=== PATIENT | female | born 1940 | race Caucasian/White ===

== ENCOUNTER 2018-04-23 16:48 | Observation (INO) ==
[2018-04-23] MEDS ORDERED: 0.9 % Sodium Chloride 1,000 ML IVC ONE (16:54)
--- NOTE | 2018-04-23 16:57 | Emergency Department Note ---
Disposition Clinical Impression: Expressive aphasia Disposition: Admitted As Inpatient Condition: Fair Forms: ED Satisfaction Letter Time of Disposition: 18:19 Neuro HPI - General Stated Complaint: Neuro symptoms Time Seen by Provider: 04/23/18 16:51 Source: patient Mode of arrival: wheelchair Limitations: no limitations Nursing Notes Reviewed: Yes Vital Signs Reviewed: Yes - History of Present Illness HPI Narrative: 78-year-old female with past mental history of hypertension, diabetes and hyperlipidemia presenting to the ED with a 24-hour history of intermittent expressive aphasia. No previous history of CVA. No anticoagulation or antiplatelet use. States that she was visiting her in a custodial who is in rehabilitation after her recent knee replacement and noted that she knew what she wanted to say but could not get the words out. States his symptoms have pretty much gone away. She had another episode earlier in the morning. She had no associated numbness, weakness or obvious facial droop. No falls. She denies any fever, headache, changes in vision, neck pain, chest pain, shortness of breath, abdominal pain, nausea, vomiting, diarrhea, rash or diaphoresis. - Related Data Allergies/Adverse Reactions: Allergies Allergy/AdvReac Type Severity Reaction Status Date / Time acetaminophen [From Vicodin] AdvReac Vomiting Verified 08/27/15 07:41 aspirin AdvReac Vomiting Verified 08/27/15 07:40 azithromycin AdvReac Rash Verified 08/27/15 07:40 Erythromycin Base AdvReac Rash Verified 08/27/15 07:40 hydrochlorothiazide AdvReac Rash Verified 08/27/15 07:40 hydrocodone [From Vicodin] AdvReac Vomiting Verified 08/27/15 07:41 naproxen AdvReac Diarrhea Verified 08/27/15 07:40 Oxycodone [From Percocet] AdvReac Vomiting Verified 08/27/15 07:41 Penicillins AdvReac Vomiting Verified 08/27/15 07:40 Sulfa (Sulfonamide AdvReac Vomiting Verified 08/27/15 07:40 Antibiotics) tramadol AdvReac Vomiting Verified 08/27/15 07:40 Review of Systems: As reviewed in the HPI. All other systems reviewed are negative or normal. Past Medical History - Past Medical History Attestation: Yes The following information was validated with the patient. Source: patient Medical history: Reports: arthritis, diabetes, GERD, hyperlipidemia, hypertension Surgical history: Reports: appendectomy, cholecystectomy, hysterectomy, other Psychiatric history: Reports: no psych history - Social History Smoking Status: Former smoker Alcohol use: Reports: none Drug use: Reports: none Physical Exam CONSTITUTIONAL: [well appearing, alert and in no acute distress] EYES: [EOMI, clear conjunctiva, PERRLA] HENT: [Normocephalic, atraumatic, moist mucus membranes, normal oropharynx] NECK: [normal inspection, full ROM, trachea midline, no obvious swelling] PULMONARY: [normal lung sounds bilaterally, normal chest rise and fall, no respiratory distress or stridor, no wheezes, no rales, no rhonchi CARDIOVASCULAR: [regular rate, regular rhythm, normal heart sounds, no murmurs, distal extremities are warm and well perfused] GASTROINSTESTINAL: [soft, non-tender, non-rigid, non-distended, no guarding, no rebound, normal bowel sounds] GENITOURINARY/RECTAL: [deferred] NEUROLOGIC: [Alert, oriented x3, normal speech, moves all extremities, cranial nerves II through XII intact, no expressive aphasia, strength and sensation normal throughout] EXTREMITIES: [Normal inspection, full ROM, no tenderness, no pedal edema, normal capillary refill] MUSCULOSKELETAL: [no gross deformities, atraumatic] SKIN: [No cyanosis, no diaphoresis, normal color, warm, no rash] PSYCHIATRIC: [normal mood and affect] Course - Reevaluation(s) Reevaluation #1: Work up is negative. Allowing permissive hypertension. Patient admitted the hospitalist service under Dr. Morelos Vital Signs Temperature 97.8 F 04/23/18 16:52 Pulse Rate 107 04/23/18 16:52 Respiratory Rate 18 04/23/18 16:52 Blood Pressure 170/82 04/23/18 16:52 O2 Sat by Pulse Oximetry 97 04/23/18 16:52 Temperature 97.8 F 04/23/18 16:52 Pulse Rate 107 04/23/18 16:52 Respiratory Rate 18 04/23/18 16:52 Blood Pressure 170/82 04/23/18 16:52 O2 Sat by Pulse Oximetry 97 04/23/18 16:52 Oxygen Delivery Oxygen Delivery Room Air Neuro Symptoms/Deficit - Medical Records Medical records reviewed: Yes I reviewed the patient's medical records. - Lab Data Lab results reviewed: Yes I reviewed the patient's lab results. Result diagrams: 04/23/18 17:00 04/23/18 17:00 Lab Results 04/23/18 04/23/18 04/23/18 Range/Units 17:00 17:00 17:26 WBC 10.1 (4.3-11.1) K/mcL RBC 4.76 (3.82-4.97) M/mcL Hgb 13.9 (11.5-15.4) g/dL Hct 42.3 (35.3-44.9) % MCV 88.9 (83.0-100.0) fL MCH 29.2 (28.0-33.3) pg MCHC 32.9 (31.6-35.5) g/dL RDW 12.1 (11.5-14.5) % Plt Count 281 (140-400) K/mcL MPV 10.6 (9.4-12.4) fL Immature Gran % 0.2 (0-4) % Seg Neutrophils % 61.0 % Lymphocytes % 26.2 % Monocytes % 9.6 % Eosinophils % 2.1 % Basophils % 0.9 % Neutrophils # 6.2 (1.6-8.9) K/mcL Lymphocytes # 2.6 (0.6-4.6) K/mcL Monocytes # 1.0 (0.0-1.3) K/mcL Eosinophils # 0.2 (0.0-0.6) K/mcL Basophils # 0.1 (0.0-0.2) K/mcL Sodium 140 (136-145) mEq/L Potassium 3.7 (3.5-5.1) mEq/L Chloride 104 (98-107) mEq/L Carbon Dioxide 25 (23-29) mEq/L BUN 21 (8-23) mg/dL Creatinine 1.03 (0.60-1.20) mg/dL Est GFR ( Amer) > 60 (> 60) Est GFR (Non-Af Amer) 52 L (> 60) BUN/Creatinine Ratio 20 (6-26) Glucose 160 H (70-105) mg/dL Calculated Osmolality 296 (280-300) Lactic Acid (0.5-2.2) mmol/L Calcium 10.5 H (8.6-10.3) mg/dL Venous Ioniz Calcium 1.28 (1.15-1.35) mmol/L Total Bilirubin 0.5 (0.3-1.0) mg/dL AST 17 (13-39) Units/L ALT 12 (7-52) Units/L Alkaline Phosphatase 36 (34-104) Units/L Troponin I < 0.03 (< 0.04) ng/mL Serum Total Protein 7.6 (6.4-8.9) g/dL Albumin 4.7 (3.5-5.7) g/dL Globulin 2.9 (2.4-3.5) g/dL Albumin/Globulin Ratio 1.6 (1.1-2.2) TSH 1.593 (0.340-5.600) mcIU/mL // Range/Units 17:36 WBC (4.3-11.1) K/mcL RBC (3.82-4.97) M/mcL Hgb (11.5-15.4) g/dL Hct (35.3-44.9) % MCV (83.0-100.0) fL MCH (28.0-33.3) pg MCHC (31.6-35.5) g/dL RDW (11.5-14.5) % Plt Count (140-400) K/mcL MPV (9.4-12.4) fL Immature Gran % (0-4) % Seg Neutrophils % % Lymphocytes % % Monocytes % % Eosinophils % % Basophils % % Neutrophils # (1.6-8.9) K/mcL Lymphocytes # (0.6-4.6) K/mcL Monocytes # (0.0-1.3) K/mcL Eosinophils # (0.0-0.6) K/mcL Basophils # (0.0-0.2) K/mcL Sodium (136-145) mEq/L Potassium (3.5-5.1) mEq/L Chloride (98-107) mEq/L Carbon Dioxide (23-29) mEq/L BUN (8-23) mg/dL Creatinine (0.60-1.20) mg/dL Est GFR ( Amer) (> 60) Est GFR (Non-Af Amer) (> 60) BUN/Creatinine Ratio (6-26) Glucose (70-105) mg/dL Calculated Osmolality (280-300) Lactic Acid 2.9 H (0.5-2.2) mmol/L Calcium (8.6-10.3) mg/dL Venous Ioniz Calcium (1.15-1.35) mmol/L Total Bilirubin (0.3-1.0) mg/dL AST (13-39) Units/L ALT (7-52) Units/L Alkaline Phosphatase (34-104) Units/L Troponin I (< 0.04) ng/mL Serum Total Protein (6.4-8.9) g/dL Albumin (3.5-5.7) g/dL Globulin (2.4-3.5) g/dL Albumin/Globulin Ratio (1.1-2.2) TSH (0.340-5.600) mcIU/mL - Radiology Data Radiology results reviewed: Yes I reviewed the patient's radiology results. - EKG Data EKG attestation: Yes I reviewed and interpreted this EKG. EKG results narrative: Sinus tach, rate 103, normal axis, no acute ischemic changes NIH Stroke Scale - Level of Consciousness LOC: Alert - LOC Questions LOC Questions: Answers both correctly - LOC Commands LOC Commands: Performs both correctly - Best Gaze Best Gaze: Normal - Visual Visual: No visual loss - Facial Palsy Facial Palsy: Normal - Motor Arms Motor Arm-Left: No drift for 10 seconds Motor Arm-Right: No drift for 10 seconds - Motor Legs Motor Leg-Left: No drift for 5 seconds Motor Leg-Right: No drift for 5 seconds - Limb Ataxia Limb Ataxia: Normal, No Ataxia - Sensory Sensory: Normal - Best Language Best Language: No aphasia - Dysarthria Dysarthria: Normal - Extinction and Inattention Extinction and Inattention: Normal - NIHSS Total Score NIHSS Total Score: 0 TPA Checklist - LKW: 3-4.5 hrs Add. Warnings/Precautions Patient/family understanding: The patient/family members have been counseled and understood the risk, benefit, and alternatives of treatment.
--- NOTE | 2018-04-23 17:13 | Emergency Department Note ---
Disposition Clinical Impression: Expressive aphasia Disposition: Admitted As Inpatient General Adult [facility] - General Chief complaint: ED Neuro Symptoms/Deficit Stated complaint: Neuro symptoms Time Seen by Provider: 04/23/18 16:51 Source: patient Mode of arrival: wheelchair Limitations: no limitations - History of Present Illness Pain Scale: 0 - Related Data Allergies Allergy/AdvReac Type Severity Reaction Status Date / Time acetaminophen [From Vicodin] AdvReac Vomiting Verified 08/27/15 07:41 aspirin AdvReac Vomiting Verified 08/27/15 07:40 azithromycin AdvReac Rash Verified 08/27/15 07:40 Erythromycin Base AdvReac Rash Verified 08/27/15 07:40 hydrochlorothiazide AdvReac Rash Verified 08/27/15 07:40 hydrocodone [From Vicodin] AdvReac Vomiting Verified 08/27/15 07:41 naproxen AdvReac Diarrhea Verified 08/27/15 07:40 Oxycodone [From Percocet] AdvReac Vomiting Verified 08/27/15 07:41 Penicillins AdvReac Vomiting Verified 08/27/15 07:40 Sulfa (Sulfonamide AdvReac Vomiting Verified 08/27/15 07:40 Antibiotics) tramadol AdvReac Vomiting Verified 08/27/15 07:40 Past Medical History - Past Medical History Medical history: Reports: arthritis, diabetes, GERD, hyperlipidemia, hypertension Surgical history: Reports: appendectomy, cholecystectomy, hysterectomy, other Psychiatric history: Reports: no psych history - Social History Smoking Status: Former smoker Alcohol use: Reports: none Drug use: Reports: none Physical Exam - General Limitations: no limitations General appearance: alert Course Vital Signs Temperature 97.8 F 04/23/18 16:52 Pulse Rate 107 04/23/18 16:52 Respiratory Rate 18 04/23/18 16:52 Blood Pressure 170/82 04/23/18 16:52 O2 Sat by Pulse Oximetry 97 04/23/18 16:52 Temperature 97.8 F 04/23/18 16:52 Pulse Rate 107 04/23/18 16:52 Respiratory Rate 18 04/23/18 16:52 Blood Pressure 170/82 04/23/18 16:52 O2 Sat by Pulse Oximetry 97 04/23/18 16:52 Oxygen Delivery Oxygen Delivery Room Air Attestation Statement - Attestation Attestation: I examined this patient and my medical decision-making was reviewed with the Resident Physician. I agree with the documented findings, disposition and treatment plan as described except to the extent set forth below. 78 yaer old female presents to the ED with complaints of expressive aphasia that started yesterday. Currently her NIH is 0. We will do a neuro defecits/TIA wokrup and than admit to medicine.
[2018-04-23 17:29] LABS: Basophils # 0.1 K/mcL (0.0-0.2); Basophils % 0.9 %; Eosinophils # 0.2 K/mcL (0.0-0.6); Eosinophils % 2.1 %; Hematocrit 42.3 % (35.3-44.9); Hemoglobin 13.9 g/dL (11.5-15.4); Immature Granulocytes % 0.2 % (0-4); Lymphocytes # 2.6 K/mcL (0.6-4.6); Lymphocytes % 26.2 %; Mean Corpuscular HGB Conc 32.9 g/dL (31.6-35.5); Mean Corpuscular Hemoglobin 29.2 pg (28.0-33.3); Mean Corpuscular Volume 88.9 fL (83.0-100.0); Mean Platelet Volume 10.6 fL (9.4-12.4); Monocytes % 9.6 %; Neutrophils # 6.2 K/mcL (1.6-8.9); Platelet Count 281 K/mcL (140-400); Red Blood Count 4.76 M/mcL (3.82-4.97); Red Cell Distribution Width 12.1 % (11.5-14.5)
[2018-04-23 17:29] LABS: VBG Ionized Calcium 1.28 mmol/L (1.15-1.35)
[2018-04-23 17:49] LABS: Alanine Aminotransferase 12 Units/L (7-52); Albumin 4.7 g/dL (3.5-5.7); Albumin/Globulin Ratio 1.6 (1.1-2.2); Alkaline Phosphatase 36 Units/L (34-104); Aspartate Amino Transferase 17 Units/L (13-39); BUN/Creatinine Ratio 20 (6-26); Bilirubin,Total 0.5 mg/dL (0.3-1.0); Blood Urea Nitrogen 21 mg/dL (8-23); Calcium 10.5 mg/dL (8.6-10.3); Carbon Dioxide 25 mEq/L (23-29); Chloride 104 mEq/L (98-107); Globulin 2.9 g/dL (2.4-3.5); Glucose 160 mg/dL (70-105); Osmolality,Calculated 296 (280-300); Potassium 3.7 mEq/L (3.5-5.1); Sodium 140 mEq/L (136-145); Total Protein 7.6 g/dL (6.4-8.9); eGFR For Non-African Americans 52 (> 60)
[2018-04-23 17:50] LABS: Troponin I < 0.03 ng/mL (< 0.04)
[2018-04-23 18:03] LABS: Thyroid Stimulating Hormone 1.593 mcIU/mL (0.340-5.600)
[2018-04-23] MEDS ORDERED: Ondansetron ODT 4 MG TAB.RAPDIS SL ONE (18:04)
[2018-04-23] MEDS ORDERED: Aspirin 81 MG TAB.CHEW PO ONE (18:04)
[2018-04-23 19:30] LABS: Bilirubin,Urine Negative (Negative); Blood,Urine Negative (Negative); Clarity,Urine Clear (Clear); Color,Urine Yellow (Yellow); Glucose,Urine (UA) Normal (Normal); Ketones,Urine Negative (Negative); Leukocyte Esterase,Urine Trace (Negative); Nitrite,Urine Negative (Negative); Protein,Urine Negative (Neg-Trace); Specific Gravity,Urine 1.008 (1.010-1.025); Urobilinogen,Urine Normal (Normal)
[2018-04-23 19:32] LABS: Bacteria,Urine None Seen per hpf (None-Few); Hyaline Casts,Urine None Seen per lpf (None-Few); RBC,Urine 0-3 per hpf (0-3); Squamous Epithelial Cell,Urine Few per lpf (None-Few); WBC,Urine 0-3 per hpf (0-3)
[2018-04-23] MEDS ORDERED: Dextrose Gel 15 GM/37.5 ML TUBE PO PRN ×2 (19:32)
[2018-04-23] MEDS ORDERED: Gadolinium Contrast Agent (WT Based) IV PRN (19:39)
[2018-04-23] MEDS ORDERED: Insulin LISPRO 300 UNITS/3 ML VIAL SQ SCH (21:00)
--- NOTE | 2018-04-23 21:47 | Internal Med History&Physical ---
Date of Encounter: 04/23/18 Time of Encounter: 21:45 Internal Medicine - H&P: HPI Chief complaint: difficulty speaking Plans for Post Hospital Care: Home History of present illness: Sanaz France is an 78-year-old woman with a history of hypertension, diabetes and hyperlipidemia who comes in with a complaint of difficulty speaking. She states that over the past 3 days she has had moments where she knows what she wants to say but the words would not come out of her mouth or sometimes she would start speaking gibberish and mixing up words. She had an episode that was witnessed by her daughter yesterday and another episode earlier this morning. She is conscious of when this is happening and given the increasing frequency decided to seek medical attention. She denied any focal deficits at the time. There is no previous history of CVA reported. There was no associated numbness, weakness or facial drooping. Her gait has remained stable. At this time the symptoms have resolved however she is anxious that it may recur he can. Her initial evaluation in the ER was unremarkable with normal lab values and CT scan. She remains hemodynamically stable. She is admitted for observation and further evaluation. She does admit to occasional episodes of vertigo which has been long-standing but has not experienced it of recent. Past Med Surg Social Fam HX - Past Medical History Medical history: arthritis, diabetes, GERD, hyperlipidemia, hypertension Additional medical history: rheumatic fever Psychiatric history: no psych history - Past Surgical History Surgical History: appendectomy, cholecystectomy, hysterectomy, other Additional surgical history: back surgery due to compression fracture - Social History Smoking Status: Former smoker Alcohol use: none Drug use: none - Family History Mother Living Status: Age at : 92 Hx Family Medical Disorders: Yes (HTN) Father Living Status: Cause of : Brain Aneurysm Hx Family Medical Disorders: Yes (HTN) Internal Medicine - H&P: Meds Allergy/AdvReac Type Severity Reaction Status Date / Time acetaminophen [From Vicodin] AdvReac Vomiting Verified 08/27/15 07:41 aspirin AdvReac Vomiting Verified 08/27/15 07:40 azithromycin AdvReac Rash Verified 08/27/15 07:40 Erythromycin Base AdvReac Rash Verified 08/27/15 07:40 hydrochlorothiazide AdvReac Rash Verified 08/27/15 07:40 hydrocodone [From Vicodin] AdvReac Vomiting Verified 08/27/15 07:41 naproxen AdvReac Diarrhea Verified 08/27/15 07:40 Oxycodone [From Percocet] AdvReac Vomiting Verified 08/27/15 07:41 Penicillins AdvReac Vomiting Verified 08/27/15 07:40 Sulfa (Sulfonamide AdvReac Vomiting Verified 08/27/15 07:40 Antibiotics) tramadol AdvReac Vomiting Verified 08/27/15 07:40 All Systems PM: A 10-system review of systems was performed and is negative for pertinent findings except as documented above in the HPI. Family history reviewed and found noncontributory. - Constitutional Vitals: Temp Pulse Resp BP Pulse Ox 98.3 F 90 14 157/84 93 04/23/18 20:40 04/23/18 20:40 04/23/18 20:40 04/23/18 20:40 04/23/18 21:31 Exam: Vitals: Reviewed General: Well-developed and well-appearing in no acute distress Skin: Warm and supple. HEENT: Moist mucous membranes. No conjunctivae pallor. Neck: No lymphadenopathy. No JVD. No carotid bruits. No palpable thyroid. Chest: Normal thoracic expansion. Normal breath sounds. Clear to auscultation. Heart: Normal S1 & S2; rhythmic. No rubs or murmurs. Abdomen: Non-distended, soft and non-tender to palpation. No peritoneal reaction. Liver is normal in size. Spleen is not palpable. Extremities: No clubbing, cyanosis or edema. No calf tenderness. Normal distal pulses. Neurological: Awake, alert and oriented to person, place and time. No focal deficits. 5/5 strength in all extremities. Sensation intact. Psych: Affect appropriate. Internal Med - H&P Results - Labs CBC & Chem 7: 04/23/18 17:00 04/23/18 17:00 Labs: Short CBC 04/23/18 Range/Units 17:00 WBC 10.1 (4.3-11.1) K/mcL Hgb 13.9 (11.5-15.4) g/dL Hct 42.3 (35.3-44.9) % Plt Count 281 (140-400) K/mcL Neutrophils # 6.2 (1.6-8.9) K/mcL BMP 12/17/18 17:00 Sodium 140 Potassium 3.7 Chloride 104 Carbon Dioxide 25 BUN 21 Creatinine 1.03 Glucose 160 H Calcium 10.5 H Cardiac Enzymes 04/23/18 Range/Units 17:00 Troponin I < 0.03 (< 0.04) ng/mL Liver Function 04/23/18 Range/Units 17:00 Total Bilirubin 0.5 (0.3-1.0) mg/dL AST 17 (13-39) Units/L ALT 12 (7-52) Units/L Alkaline Phosphatase 36 (34-104) Units/L Albumin 4.7 (3.5-5.7) g/dL Urine 04/23/18 Range/Units 19:00 Urine Color Yellow (Yellow) Urine Clarity Clear (Clear) Urine pH 7.0 (5.0-8.0) pH Units Ur Specific [place] 1.008 L (1.010-1.025) Urine Protein Negative (Neg-Trace) mg/dL Urine Glucose (UA) Normal (Normal) mg/dL - Impressions ITS Impressions Chest X-Ray 04/23/18 16:54 IMPRESSION: No acute cardiopulmonary disease. D/ / 04/23/2018 17:24:55 Andrea Fritz MD / rio Interpreting Provider: Andrea Fritz MD Head CT 04/23/18 16:55 IMPRESSION: No acute intracranial abnormality. Small vessel white matter ischemic changes. D/ / Imtiaz Gutierrez MD / Imtiaz Gutierrez MD Interpreting Provider: Imitaz Gutierrez MD - Assessment and plan (1) Expressive aphasia Current Visit: Yes Status: Acute Assessment and plan: The patient's recurring episodes of expressive aphasia are concerning for transient ischemic attacks. Based on her risk factors she has an ABCD2 score of 4 which is moderate risk. She was given loading dose of aspirin and we will continue with low-dose daily. Continue statin therapy. We will order brain MRI and head and neck MRA for further evaluation. She will benefit from neurology evaluation either during admission for scheduled outpatient visit. (2) HTN (hypertension) Current Visit: Yes Status: Acute Assessment and plan: Well controlled at this time. Will resume home medications once verified. Qualifiers: Hypertension type: essential hypertension Qualified Code(s): I10 - Essential (primary) hypertension (3) HLD (hyperlipidemia) Current Visit: Yes Status: Acute Assessment and plan: On daily simvastatin 10mg; lipid panel within normal limits. Qualifiers: Hyperlipidemia type: unspecified Qualified Code(s): E78.5 - Hyperlipidemia, unspecified (4) Diabetes Current Visit: Yes Status: Chronic Assessment and plan: On metformin at home. Will place on insulin sliding scale in the interim. 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 - Time Spent With Patient Total time spent is greater than 50% in coordination of care (as documented) at patient's floor/unit and/or counseling patient: Greater than 35 minutes
[2018-04-23] MEDS: Lisinopril 20 MG TABLET PO SCH (22:31)
[2018-04-23] MEDS: *HR* Heparin 5,000 UNIT/ML VIAL SQ SCH (22:31)
[2018-04-24] MEDS: *HR* Heparin 5,000 UNIT/ML VIAL SQ SCH ×2 (05:27→14:08)
[2018-04-24] MEDS: Insulin LISPRO 300 UNITS/3 ML VIAL SQ SCH ×3 (08:05→17:45)
[2018-04-24] MEDS: Lisinopril 20 MG TABLET PO SCH (08:06)
[2018-04-24] MEDS ORDERED: Aspirin 81 MG TAB.CHEW PO SCH (09:00)
--- NOTE | 2018-04-24 10:38 | Internal Med Progress Note ---
Hospitalist Progress Note - Encounter Date of Encounter: 04/24/18 Time of Encounter: 10:38 - Exam Vitals: Temp Pulse Resp BP Pulse Ox 98.0 F 86 18 120/56 93 04/24/18 07:48 04/24/18 07:48 04/24/18 07:48 04/24/18 07:48 04/24/18 07:48 - Assessment and Plan (1) Expressive aphasia Current Visit: Yes Status: Acute (2) HTN (hypertension) Current Visit: Yes Status: Acute (3) HLD (hyperlipidemia) Current Visit: Yes Status: Acute (4) Diabetes Current Visit: Yes Status: Chronic (5) DVT prophylaxis Current Visit: Yes Status: Acute - Time Spent with Patient Total time spent is greater than 50% in coordination of care (as documented) at patient's floor/unit and/or counseling patient: Internal Medicine: Result - Labs CBC & Chem 7: 04/23/18 17:00 04/23/18 17:00 Labs: Short CBC 04/23/18 Range/Units 17:00 WBC 10.1 (4.3-11.1) K/mcL Hgb 13.9 (11.5-15.4) g/dL Hct 42.3 (35.3-44.9) % Plt Count 281 (140-400) K/mcL Neutrophils # 6.2 (1.6-8.9) K/mcL BMP 04/23/18 17:00 Sodium 140 Potassium 3.7 Chloride 104 Carbon Dioxide 25 BUN 21 Creatinine 1.03 Glucose 160 H Calcium 10.5 H Cardiac Enzymes 04/23/18 Range/Units 17:00 Troponin I < 0.03 (< 0.04) ng/mL Liver Function 04/23/18 Range/Units 17:00 Total Bilirubin 0.5 (0.3-1.0) mg/dL AST 17 (13-39) Units/L ALT 12 (7-52) Units/L Alkaline Phosphatase 36 (34-104) Units/L Albumin 4.7 (3.5-5.7) g/dL Urine 04/23/18 Range/Units 19:00 Urine Color Yellow (Yellow) Urine Clarity Clear (Clear) Urine pH 7.0 (5.0-8.0) pH Units Ur Specific [place] 1.008 L (1.010-1.025) Urine Protein Negative (Neg-Trace) mg/dL Urine Glucose (UA) Normal (Normal) mg/dL - Impressions Impressions Chest X-Ray 04/23/18 16:54 IMPRESSION: No acute cardiopulmonary disease. D/ / 04/23/2018 17:24:55 Andrea Fritz MD / rio Interpreting Provider: Andrea Fritz MD Head CT 04/23/18 16:55 IMPRESSION: No acute intracranial abnormality. Small vessel white matter ischemic changes. D/ / Imtiaz Gutierrez MD / Imtiaz Gutierrez MD Interpreting Provider: Imtiaz Gutierrez MD Consult Discharge Plan - Plan Referrals: Kirsten Ramirez CNP [Primary Care Provider] - 05/03/18 9:00 am (2) HTN (hypertension) Qualifiers: Hypertension type: essential hypertension Qualified Code(s): I10 - Essential (primary) hypertension (3) HLD (hyperlipidemia) Qualifiers: Hyperlipidemia type: unspecified Qualified Code(s): E78.5 - Hyperlipidemia, unspecified (4) Diabetes Qualifiers: Diabetes mellitus type: type 2 Diabetes mellitus fpc insulin use: without fpc use Diabetes mellitus complication status: without complication Qualified Code(s): E11.9 - Type 2 diabetes mellitus without complications
[2018-04-24 16:27] VITALS: BP 159/85
--- NOTE | 2018-04-24 17:31 | Neurology - Consult Note ---
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 Unfortunately currently angioplasty procedure is not of superiority than conservative medical therapy therefore i alda beckham recommend her to start antiplatelet therapy in the form of Plavix 75mg daily. Continue statin therapy. Treat HTN. Patient speech function significantly improved. It is expected that her speech is to fully recover. Patient has no focal motor deficits at present time. Okay to discharge home from neurology perspective. Total time spend on this case is approximately 50 minutes, of which more than 50% of time were spent on coordination of care and counselling and the rest for direct face to face Qualifiers: CVA mechanism: occlusion Precerebral and cerebral artery: middle cerebral artery Laterality of affected vessel: left Qualified Code(s): I63.512 - Cerebral infarction due to unspecified occlusion or stenosis of left middle cerebral artery History of Present Illness Chief complaint: speech difficulty HPI: Ms. France is a 78 year old female with PMH significant for HTN, GERD, vertigo, lumbar DDD who developed acute onset of speech difficulty. This occurred few days ago when she was with her who is getting physical rehabilitation and all of a sudden she started experiencing difficulty with her words. She can still say things but it came out 'crazy'. She did not seek medical help immediately and she did later call her PCP who told her to go ER right away. She did yesterday. She has no focal weakness. Walking is normal. MRI of brain showed multiple small ischemic infarct all within the left MCA territory. MRA of brain and neck showed presence of likely severe stenosis or occlusion at the left MCA M1 segment with flow observed at the M2 and M3 segments. Patient states that she has had rheumatoid arthritis in the past and she was given steroid and three aspirin and the combination caused big problem to her stomach. She is not on any antiplatelet agents right now. Past Med Surg Social Fam HX - Past Medical History Medical history: arthritis, diabetes, GERD, hyperlipidemia, hypertension Additional medical history: rheumatic fever Psychiatric history: no psych history - Past Surgical History Surgical History: appendectomy, cholecystectomy, hysterectomy, other Additional surgical history: back surgery due to compression fracture - Social History Smoking Status: Former smoker Alcohol use: none Drug use: none - Family History Mother Living Status: Age at : 92 Hx Family Medical Disorders: Yes (HTN) Father Living Status: Cause of : Brain Aneurysm Hx Family Medical Disorders: Yes (HTN) Medications and Allergies Alendronate Sodium 70 mg PO FR 04/23/18 [History] Amlodipine Besylate 10 mg PO DAILY 04/23/18 [History] Calcium Carbonate [Calcium] 600 mg PO DAILY 04/23/18 [History] Cholecalciferol (Vitamin D3) [Vitamin D] 1,000 unit PO DAILY 04/23/18 [History] Cyanocobalamin (Vitamin B-12) [Vitamin B12] 1,000 mcg PO DAILY 04/23/18 [History] Lisinopril [Zestril] 40 mg PO DAILY 04/23/18 [History] Metformin HCl 1,000 mg PO BID 04/23/18 [History] Simvastatin [Zocor] 10 mg PO MOWEFR 04/23/18 [History] Allergy/AdvReac Type Severity Reaction Status Date / Time acetaminophen [From Vicodin] AdvReac Vomiting Verified 08/27/15 07:41 aspirin AdvReac Vomiting Verified 08/27/15 07:40 azithromycin AdvReac Rash Verified 08/27/15 07:40 Erythromycin Base AdvReac Rash Verified 08/27/15 07:40 hydrochlorothiazide AdvReac Rash Verified 08/27/15 07:40 hydrocodone [From Vicodin] AdvReac Vomiting Verified 08/27/15 07:41 naproxen AdvReac Diarrhea Verified 08/27/15 07:40 Oxycodone [From Percocet] AdvReac Vomiting Verified 08/27/15 07:41 Penicillins AdvReac Vomiting Verified 08/27/15 07:40 Sulfa (Sulfonamide AdvReac Vomiting Verified 08/27/15 07:40 Antibiotics) tramadol AdvReac Vomiting Verified 08/27/15 07:40 All Systems: The remainder of the systems were reviewed and are negative Physical Examination - Vital Signs Vital Signs: Initial Vital Signs Temp Pulse Resp BP Pulse Ox 97.8 F 107 18 170/82 97 04/23/18 16:52 04/23/18 16:52 04/23/18 16:52 04/23/18 16:52 04/23/18 16:52 - Constitutional General appearance: comfortable - Neurologic Sensorimotor examination: intact Detailed motor examination: full strength in all major muscle groups Motor examination - right side: 5/5: deltoids, biceps, triceps, wrist flexion, wrist extension, manager reading, hip flexors, tibialis Anterior, quadriceps, toe extension (EHL), plantarflexion Motor examination - left side: 5/5: deltoids, biceps, triceps, wrist flexion, wrist extension, hip flexors, manager reading, quadriceps, tibialis Anterior, toe extension (EHL), plantarflexion Detailed sensory examination: intact Posture: other (None) Reflex and gait examination: intact Reflexes: Biceps: 2+, Triceps: 2+, Brachioradialis: 2+, Patella: 2+, Achilles: 2+ Mental Status Examination: awake, alert, oriented to person, oriented to place, oriented to time, follows commands appropriately, answers questions appropriately, no agnosia, no aphasia, no aproxia Cranial nerve examination: PERRL, EOMI, visual june intact, corneal reflexes brisk symmetrically, sensory to face intact, mastication intact, no facial asymmetry is present, no dysarthria, hearing is intact symmetrically, soft palate elevates bilaterally upon phonation, gag reflex intact, flexes SCM and trapezius muscles symmetrically with full power, tongue protrudes midline, no atrophy or facial fasiculations present Cerebellar examination: no dysmetria, performs finger to nose and heel to ramirez symmetrically without ataxia, no gait ataxia, no truncal ataxia, no difficulty with rapid alternating movements Results - Laboratory Findings CBC and BMP: 04/23/18 17:00 04/23/18 17:00 Abnormal lab findings: Abnormal lab results Est GFR (Non-Af Amer) 52 (> 60) L 04/23/18 17:00 Glucose 160 mg/dL (70-105) H 18 17:00 POC Glucose 125 mg/dL (70-99) H 04/23/18 20:57 Calcium 10.5 mg/dL (8.6-10.3) H 04/23/18 17:00 Ur Specific [place] 1.008 (1.010-1.025) L 18 19:00 Ur Leukocyte Esterase Trace (Negative) H 04/23/18 19:00 Ur Culture Indicated? YES (NO) A 04/23/18 19:00 - Diagnostic Findings Additional findings: EXAMINATION: CT OF THE HEAD WITHOUT CONTRAST 04/23/2018 5:51 pm TECHNIQUE: CT of the head was performed without the administration of intravenous contrast. Dose modulation, iterative reconstruction, and/or weight based adjustment of the mA/kV was utilized to reduce the radiation dose to as low as reasonably achievable. COMPARISON: None. HISTORY: ORDERING SYSTEM PROVIDED HISTORY: Expressive aphasia 1 day history of symptoms. FINDINGS: BRAIN/VENTRICLES: There is no acute intracranial hemorrhage, mass effect or midline shift. No abnormal extra-axial fluid collection. The henderson-white differentiation is maintained without evidence of an acute infarct. There is no evidence of hydrocephalus. Nonspecific decreased attenuation in the periventricular and subcortical white matter, most consistent with small vessel ischemic change. ORBITS: The visualized portion of the orbits demonstrate no acute abnormality. SINUSES: The visualized paranasal sinuses and mastoid air cells demonstrate no acute abnormality. SOFT TISSUES/SKULL: No acute abnormality of the visualized skull or soft tissues. CT/CT head/brain wo con IMPRESSION: No acute intracranial abnormality. Small vessel white matter ischemic changes. D/ / Imtiaz Gutierrez MD / Imtiaz Gutierrez MD Interpreting Provider: Imtiaz Gutierrez MD OF THE BRAIN WITHOUT CONTRAST, 04/24/2018 12:39 pm TECHNIQUE: Multiplanar multisequence MRI of the brain was performed without the administration of intravenous contrast. COMPARISON: Head CT without contrast 04/23/2018 HISTORY: ORDERING SYSTEM PROVIDED HISTORY: Expressive aphasia Acute symptoms. Initial encounter. FINDINGS: INTRACRANIAL STRUCTURES/VENTRICLES: Numerous foci of cortical and subcortical diffusion restriction within the left subinsular cortex, left temporal lobe, and left frontal and parietal lobes consistent with acute embolic infarctions in the left middle cerebral artery vascular territory. No mass effect or midline shift. No evidence of an acute intracranial hemorrhage. Diffuse parenchymal volume loss with enlargement of the ventricles and cerebral sulci. Foci of periventricular and subcortical white matter as well as patchy pontine white matter T2/FLAIR hyperintense signal. The sellar/suprasellar regions appear unremarkable. Loss of normal flow void within the left middle cerebral artery M1 and proximal M2 branches. ORBITS: The visualized portion of the orbits demonstrate no acute abnormality. SINUSES: Minor mucosal thickening of the ethmoid air cells. Small air-fluid level in the sphenoid sinus. Tympanomastoid cavities are clear. BONES/SOFT TISSUES: The bone marrow signal intensity appears normal. The soft tissues demonstrate no acute abnormality. MR/MR head/brain wo con IMPRESSION: 1. Numerous acute embolic punctate infarctions within the left middle cerebral artery vascular territory. 2. Loss of normal flow void within the left MCA M1 and M2 branches consistent with high-grade stenosis/occlusion. 3. Senescent changes with parenchymal volume loss and sequela of chronic microvascular ischemic changes. The findings were sent to the [facility]iology Results [facility] at 12:53 pm on 04/24/2018 to be communicated to a licensed caregiver. D/ / 04/24/2018 13:02:01 Harsh Severino MD / kirit Interpreting Provider: Harsh Severino MD EXAMINATION: MRI OF THE BRAIN WITHOUT CONTRAST, 04/24/2018 12:39 pm TECHNIQUE: Multiplanar multisequence MRI of the brain was performed without the administration of intravenous contrast. COMPARISON: Head CT without contrast 04/23/2018 HISTORY: ORDERING SYSTEM PROVIDED HISTORY: Expressive aphasia Acute symptoms. Initial encounter. FINDINGS: INTRACRANIAL STRUCTURES/VENTRICLES: Numerous foci of cortical and subcortical diffusion restriction within the left subinsular cortex, left temporal lobe, and left frontal and parietal lobes consistent with acute embolic infarctions in the left middle cerebral artery vascular territory. No mass effect or midline shift. No evidence of an acute intracranial hemorrhage. Diffuse parenchymal volume loss with enlargement of the ventricles and cerebral sulci. Foci of periventricular and subcortical white matter as well as patchy pontine white matter T2/FLAIR hyperintense signal. The sellar/suprasellar regions appear unremarkable. Loss of normal flow void within the left middle cerebral artery M1 and proximal M2 branches. ORBITS: The visualized portion of the orbits demonstrate no acute abnormality. SINUSES: Minor mucosal thickening of the ethmoid air cells. Small air-fluid level in the sphenoid sinus. Tympanomastoid cavities are clear. BONES/SOFT TISSUES: The bone marrow signal intensity appears normal. The soft tissues demonstrate no acute abnormality. MR/MR head/brain wo con IMPRESSION: 1. Numerous acute embolic punctate infarctions within the left middle cerebral artery vascular territory. 2. Loss of normal flow void within the left MCA M1 and M2 branches consistent with high-grade stenosis/occlusion. 3. Senescent changes with parenchymal volume loss and sequela of chronic microvascular ischemic changes. The findings were sent to the Radiology Results Communication [facility] at 12:53 pm on 04/24/2018 to be communicated to a licensed caregiver. D/ / 04/24/2018 13:02:01 Harsh Severino MD / kirit Interpreting Provider: Harsh Severino MD EV/EV echo with saline Impressions: LVEF 55-60%. Moderate concentric left ventricular hypertrophy. Moderate left ventricular diastolic dysfunction. Normal right ventricular structure and function. No evidence of PFO with agitated saline contrast. Trace mitral regurgitation. No evidence of pulmonary hypertension. Consult Discharge Plan - Plan Instructions: Self Care Measures After a Stroke (DC), Self Care Measures After a Stroke (GEN) Referrals: Kirsten Ramirez CNP [Primary Care Provider] - 05/03/18 9:00 am Audie Adorno MD [Partnered Physician] - (appointment has been requested. office will call with date and time of appointment. )
--- NOTE | 2018-04-24 17:47 | Electrocardiograph Report ---
[address] [place], [place] [address] Test Date: 2018-04-23 Pat Name: Sanaz France Department: [id number] Room: 3B54 Gender: F Supervisor Of Way: : 1940 Requested By: Bandar Romero Order Number: [id number] Reading MD: Guerline Melendez Measurements Intervals [place] Rate: 103 P: 35 IN: 172 QRS: 5 QRSD: 87 T: 13 QT: 325 QTc: 426 Interpretive Statements Sinus tachycardia Probable left atrial enlargement Electronically Signed On 04-24-2018 17:45:04 EST by Guerline Melendez
--- NOTE | 2018-04-24 18:40 | Discharge Summary ---
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 Patient was seen by neurology who recommended starting antiplatelet therapy Plavix 75 mg daily and continue his statin therapy. Patient was seen by speech therapy who recommends follow-up with neurology in consult as outpatient as needed Orders not resulted at time of discharge: Pending orders 04/23/18 19:00 Culture,Urine [RM] Stat Date of Encounter: 04/24/18 Time of Encounter: 18:37 - Discharge Diagnosis (1) Expressive aphasia Priority: Primary Status: Acute (2) HTN (hypertension) Priority: Secondary Status: Acute Qualifiers: Hypertension type: essential hypertension Qualified Code(s): I10 - Essential (primary) hypertension (3) HLD (hyperlipidemia) Priority: Secondary Status: Acute Qualifiers: Hyperlipidemia type: unspecified Qualified Code(s): E78.5 - Hyperlipidemia, unspecified (4) Diabetes Priority: Secondary Status: Chronic Qualifiers: Diabetes mellitus type: type 2 Diabetes mellitus longterm insulin use: without longterm use Diabetes mellitus complication status: without complication Qualified Code(s): E11.9 - Type 2 diabetes mellitus without complications Hospital course: Ms. France is a 78 year old female past medical history hypertension, vertigo lumbar DDD. Presented to [facility] ED with acute onset of difficulty speaking. Patient states that the difficulty speaking began a few days ago when she suddenly had difficulty finding her words. At times she felt as if she was speaking gibberish. She did not seek medical help immediately Advicor PCP who advised her to go to the ER. She denies any focal weaknesses she is able to ambulate without difficulty. Currently her speech is fluent however at times she does speak slowly. MRI of the brain showed multiple small ischemic infarcts within the left MCA territory MRI of the brain and neck showed presence of likely severe stenosis of occlusion of the left MCA [place] segment with flow observed at the M2 and M3 segment. Neurology was consulted who recommended continuation of statin patient is unable take aspirin due to stomach issues so we will start her on Plavix 75 mg daily. Patient was evaluated by speech therapy no recommendations at this time. Advising a patient follow-up as an outpatient with neurology to be reevaluated for any continued speech therapy. Patient was given a prescription for Plavix advised to follow-up with PCP and neurology she is hemodynamically stable and ready for discharge. - Time Spent with Patient Total time spent providing and/or coordinating discharge services: - Discharge Medications Prescriptions: Clopidogrel Bisulfate [Plavix] 75 mg PO DAILY #30 tablet Home Medications: Alendronate Sodium 70 mg PO FR 04/23/18 [History] Amlodipine Besylate 10 mg PO DAILY 04/23/18 [History] Calcium Carbonate [Calcium] 600 mg PO DAILY 04/23/18 [History] Cholecalciferol (Vitamin D3) [Vitamin D3] 1,000 unit PO DAILY 04/23/18 [History] Cyanocobalamin (Vitamin B-12) [Vitamin B12] 1,000 mcg PO DAILY 04/23/18 [History ] Lisinopril [Zestril] 40 mg PO DAILY 04/23/18 [History] Metformin HCl 1,000 mg PO BID 04/23/18 [History] Simvastatin [Zocor] 10 mg PO MOWEFR 04/23/18 [History] Clopidogrel Bisulfate [Plavix] 75 mg PO DAILY #30 tablet 04/24/18 [Rx] Allergies/Adverse Reactions: Allergy/AdvReac Type Severity Reaction Status Date / Time acetaminophen [From Vicodin] AdvReac Vomiting Verified 08/27/15 07:41 aspirin AdvReac Vomiting Verified 08/27/15 07:40 azithromycin AdvReac Rash Verified 08/27/15 07:40 Erythromycin Base AdvReac Rash Verified 08/27/15 07:40 hydrochlorothiazide AdvReac Rash Verified 08/27/15 07:40 hydrocodone [From Vicodin] AdvReac Vomiting Verified 08/27/15 07:41 naproxen AdvReac Diarrhea Verified 08/27/15 07:40 Oxycodone [From Percocet] AdvReac Vomiting Verified 08/27/15 07:41 Penicillins AdvReac Vomiting Verified 08/27/15 07:40 Sulfa (Sulfonamide AdvReac Vomiting Verified 08/27/15 07:40 Antibiotics) tramadol AdvReac Vomiting Verified 08/27/15 07:40 Date of admission: 04/23/18 18:29 Primary care physician: Kirsten Ramirez CNP Consults: 04/24/18 13:33 Consult to Neurology [CONS] Routine Consulting Provider: Neurology [facility] Reason for Consult: acute embolic infarctions Time Notified: 13:33 Call Completed: Yes 04/24/18 15:36 Consult to Speech Therapy [CONS] Routine Comment: Evaluate, develop and implement POC Reason for Consult: CVA Time Notified: 15:36 Call Completed: Yes - Constitutional Vitals: Temp Pulse Resp BP Pulse Ox 97.7 F 100 14 159/85 98 04/24/18 16:20 04/24/18 16:20 04/24/18 16:20 04/24/18 16:20 04/24/18 16:20 General appearance: Present: A&O X 3 Exam: . - Head Head exam: Present: atraumatic, normocephalic - Eye Eye exam: Present: PERRL, conjuntiva pink, sclera anicteric Pupils: Present: PERRL - Neck Neck exam general surgery: Present: supple, trachea midline. Absent: lymphadenopathy - Respiratory Respiratory exam: Present: CTAB. Absent: accessory muscle use, rales, rhonchi, wheezes - Cardiovascular Cardiovascular exam: Present: RRR, +S1, +S2. Absent: diastolic murmur, gallop, rubs, systolic murmur - GI/Abdominal GI/Abdominal exam: Present: normal bowel sounds, soft, no peritoneal signs. Absent: distended, tenderness - Extremities Exam Extremities exam: Present: warm, radial pulses palpable and symmetrical. Absent: calf tenderness, cyanotic, pedal edema - Neurological Exam Neurological exam: Present: CN II-XII intact, oriented X3, no focal deficits. Absent: pronater drift, facial droop, speech deficit - Skin Skin exam: Present: dry, intact - Patient Status Disposition: Home, Self-Care Condition: Fair Functional capacity at discharge: independent ambulation - Discharge Instructions Instructions: Clopidogrel (By mouth), Self Care Measures After a Stroke (DC), Self Care Measures After a Stroke (GEN) Follow Up With: Kirsten Ramirez CNP [Primary Care Provider] - 05/03/18 9:00 am Audie Adorno MD [Partnered Physician] - (appointment has been requested. office will call with date and time of appointment. ) - Diet and Activity Activity: increase activity as tolerated Diet: advance to your usual diet - Stroke Contraindication Rehab Services Not Assessed: Returned to Prior Level of Function
== END 2018-04-24 18:54 | disposition home or self-care (01) ==
LOC: 3BNU 16:48 → EMEROOARM 16:48 → 3BNU 20:10
PROVIDERS: ADMIT Internal Medicine; ATTEND Internal Medicine

== ENCOUNTER 2018-12-05 10:23 | Inpatient (IN) ==
[2018-12-05] MEDS ORDERED: 0.9 % Sodium Chloride 500 ML IVC ONE (10:35)
[2018-12-05 10:57] LABS: Basophils # 0.1 K/mcL (0.0-0.2); Basophils % 0.9 %; Eosinophils # 0.2 K/mcL (0.0-0.6); Eosinophils % 2.6 %; Hematocrit 39.9 % (35.3-44.9); Hemoglobin 13.3 g/dL (11.5-15.4); Immature Granulocytes % 0.3 % (0-4); Lymphocytes % 24.9 %; Mean Corpuscular HGB Conc 33.3 g/dL (31.6-35.5); Mean Corpuscular Hemoglobin 29.5 pg (28.0-33.3); Mean Corpuscular Volume 88.5 fL (83.0-100.0); Monocytes # 0.8 K/mcL (0.0-1.3); Monocytes % 10.7 %; Neutrophils # 4.8 K/mcL (1.6-8.9); Platelet Count 292 K/mcL (140-400); Red Blood Count 4.51 M/mcL (3.82-4.97); Red Cell Distribution Width 12.2 % (11.5-14.5); Segmented Neutrophils % 60.6 %; White Blood Count 7.8 K/mcL (4.3-11.1)
[2018-12-05 11:05] LABS: Prothrombin Time 10.8 Seconds (9.4-12.1)
[2018-12-05 11:20] LABS: Alanine Aminotransferase 11 Units/L (7-52); Albumin 4.1 g/dL (3.5-5.7); Albumin/Globulin Ratio 1.6 (1.1-2.2); Alkaline Phosphatase 36 Units/L (34-104); Aspartate Amino Transferase 15 Units/L (13-39); BUN/Creatinine Ratio 19 (6-26); Bilirubin,Direct 0.1 mg/dL (0.0-0.2); Bilirubin,Indirect 0.6 mg/dL (0.0-1.2); Bilirubin,Total 0.7 mg/dL (0.3-1.0); Blood Urea Nitrogen 19 mg/dL (8-23); Calcium 9.7 mg/dL (8.6-10.3); Carbon Dioxide 26 mEq/L (23-29); Chloride 104 mEq/L (98-107); Globulin 2.6 g/dL (2.4-3.5); Glucose 152 mg/dL (70-105); Osmolality,Calculated 297 (280-300); Potassium 3.7 mEq/L (3.5-5.1); Sodium 141 mEq/L (136-145); Total Protein 6.7 g/dL (6.4-8.9); Troponin I < 0.03 ng/mL (< 0.04); eGFR For African Americans > 60 (> 60); eGFR For Non-African Americans 52 (> 60)
[2018-12-05 11:30] LABS: Bilirubin,Urine Negative (Negative); Blood,Urine Negative (Negative); Clarity,Urine Clear (Clear); Color,Urine Yellow (Yellow); Glucose,Urine (UA) Normal (Normal); Ketones,Urine Negative (Negative); Leukocyte Esterase,Urine Negative (Negative); Nitrite,Urine Negative (Negative); Protein,Urine Negative (Neg-Trace); Specific Gravity,Urine 1.009 (1.010-1.025); Urobilinogen,Urine Normal (Normal)
[2018-12-05] MEDS ORDERED: Naloxone 0.4 MG/ML INJ IVP PRN (14:48)
[2018-12-05 15:18] LABS: Magnesium 1.5 mg/dL (1.6-2.6); Phosphorous 3.4 mg/dL (2.7-4.5)
[2018-12-05] MEDS ORDERED: *HR* Metformin 500 MG TABLET PO SCH (17:00)
[2018-12-05] MEDS ORDERED: Perflutren Lipid Microsphere 1.3 ML in 0.9 % Sodium Chloride 8.7 ML IVP ONE (18:24)
[2018-12-05] MEDS ORDERED: Dextrose Gel 15 GM/37.5 ML TUBE PO PRN ×2 (19:33)
[2018-12-05] MEDS ORDERED: D5% in Water 1,000 ML IVC PRN (19:33)
[2018-12-05] MEDS ORDERED: *HR* Dextrose 50 % in Water (Syg) 50 ML SYRINGE IVP PRN (19:33)
[2018-12-05] MEDS: *HR* Heparin 5,000 UNIT/ML VIAL SQ SCH (20:20)
[2018-12-05] MEDS: 0.9 % Sodium Chloride 1,000 ML IVC SCH (20:28)
[2018-12-05] MEDS: amLODIPine 5 MG TABLET PO SCH (20:32)
[2018-12-05] MEDS ORDERED: *HR* Heparin 5,000 UNIT/ML VIAL SQ SCH (22:00)
[2018-12-05] MEDS: Insulin LISPRO 300 UNITS/3 ML VIAL SQ SCH (23:05)
[2018-12-06] MEDS: *HR* Heparin 5,000 UNIT/ML VIAL SQ SCH ×3 (03:21→20:18)
[2018-12-06 04:49] LABS: Basophils # 0.1 K/mcL (0.0-0.2); Eosinophils # 0.3 K/mcL (0.0-0.6); Hematocrit 38.2 % (35.3-44.9); Hemoglobin 12.6 g/dL (11.5-15.4); Immature Granulocytes % 0.3 % (0-4); Lymphocytes # 2.6 K/mcL (0.6-4.6); Lymphocytes % 30.5 %; Mean Corpuscular Hemoglobin 29.2 pg (28.0-33.3); Mean Corpuscular Volume 88.4 fL (83.0-100.0); Mean Platelet Volume 10.5 fL (9.4-12.4); Monocytes # 0.9 K/mcL (0.0-1.3); Monocytes % 10.3 %; Neutrophils # 4.7 K/mcL (1.6-8.9); Platelet Count 287 K/mcL (140-400); Red Blood Count 4.32 M/mcL (3.82-4.97); Red Cell Distribution Width 12.1 % (11.5-14.5); Segmented Neutrophils % 54.9 %; White Blood Count 8.6 K/mcL (4.3-11.1)
[2018-12-06 05:04] LABS: BUN/Creatinine Ratio 20 (6-26); Blood Urea Nitrogen 19 mg/dL (8-23); Calcium 8.7 mg/dL (8.6-10.3); Carbon Dioxide 24 mEq/L (23-29); Chloride 106 mEq/L (98-107); Glucose 130 mg/dL (70-105); Osmolality,Calculated 296 (280-300); Sodium 141 mEq/L (136-145); eGFR For African Americans > 60 (> 60); eGFR For Non-African Americans 55 (> 60)
[2018-12-06] MEDS: Potassium Chloride Elixir 20 MEQ/15 ML UDC PO SCH ×2 (06:39→09:14)
[2018-12-06] MEDS: Insulin LISPRO 300 UNITS/3 ML VIAL SQ SCH ×4 (09:13→20:17)
[2018-12-06] MEDS: Lisinopril 20 MG TABLET PO SCH (09:14)
[2018-12-06] MEDS: amLODIPine 5 MG TABLET PO SCH (09:14)
[2018-12-06] MEDS ORDERED: Isovue-370 500 ML BOTTLE IVP ONE (10:02)
[2018-12-06] MEDS: 0.9 % Sodium Chloride 1,000 ML IVC SCH (16:16)
[2018-12-07] MEDS: *HR* Heparin 5,000 UNIT/ML VIAL SQ SCH ×2 (01:32→11:13)
[2018-12-07 03:13] LABS: Calcium 8.8 mg/dL (8.6-10.3); Potassium 3.8 mEq/L (3.5-5.1)
[2018-12-07] MEDS ORDERED: Lidocaine Viscous Oral Soln 15 ML SOLUTION MM PRN (07:27)
[2018-12-07] MEDS ORDERED: *HR* Midazolam HCl 2 MG/2 ML VIAL IVP PRN (07:28)
[2018-12-07] MEDS ORDERED: 0.9 % Sodium Chloride 500 ML IVC ONE (07:28)
[2018-12-07] MEDS ORDERED: *HR* Midazolam HCl 5 MG/5 ML VIAL IVP ONE ×2 (07:50→07:51)
[2018-12-07] MEDS: *HR* FentaNYL (PF) 100 MCG/2 ML VIAL IVP PRN ×2 (08:15→08:20)
[2018-12-07] MEDS: Insulin LISPRO 300 UNITS/3 ML VIAL SQ SCH ×2 (09:38→11:13)
[2018-12-07] MEDS: amLODIPine 5 MG TABLET PO SCH (11:15)
[2018-12-07] MEDS: Lisinopril 20 MG TABLET PO SCH (11:16)
[2018-12-07 15:22] VITALS: BP 138/80
== END 2018-12-07 16:53 | disposition home or self-care (01) | DRG 65 ==
LOC: EMEROOARM 10:23 → 3BNU 10:23 → SUATTDRO 15:04 → 3BNU 16:06
PROVIDERS: ADMIT Student in an Organized Health Care Education/Training Program; ATTEND Family Medicine

== ENCOUNTER 2020-04-19 11:50 | Inpatient (IN) ==
[2020-04-19] MEDS ORDERED: Dexamethasone 4 MG/ML VIAL IVP ONE (12:29)
[2020-04-19] MEDS ORDERED: 0.9 % Sodium Chloride 1,000 ML IVC ONE (12:29)
[2020-04-19 12:36] LABS: Basophils % 0.2 %; Hematocrit 42.1 % (35.3-44.9); Hemoglobin 14.2 g/dL (11.5-15.4); Immature Granulocytes % 1.1 % (0-4); Lymphocytes # 0.8 K/mcL (0.6-4.6); Lymphocytes % 6.5 %; Mean Corpuscular HGB Conc 33.7 g/dL (31.6-35.5); Mean Corpuscular Hemoglobin 29.2 pg (28.0-33.3); Mean Corpuscular Volume 86.6 fL (83.0-100.0); Mean Platelet Volume 10.6 fL (9.4-12.4); Monocytes % 7.6 %; Neutrophils # 10.7 K/mcL (1.6-8.9); Platelet Count 290 K/mcL (140-400); Red Blood Count 4.86 M/mcL (3.82-4.97); Red Cell Distribution Width 11.9 % (11.5-14.5); Segmented Neutrophils % 84.6 %; White Blood Count 12.7 K/mcL (4.3-11.1)
[2020-04-19 12:37] LABS: INR 1.5; Prothrombin Time 17.3 Seconds (9.4-12.1)
[2020-04-19 12:56] LABS: Alanine Aminotransferase 19 Units/L (7-52); Albumin 3.9 g/dL (3.5-5.7); Albumin/Globulin Ratio 1.1 (1.1-2.2); Alkaline Phosphatase 31 Units/L (34-104); Aspartate Amino Transferase 26 Units/L (13-39); BUN/Creatinine Ratio 23 (6-26); Bilirubin,Direct 0.1 mg/dL (0.0-0.2); Bilirubin,Indirect 0.4 mg/dL (0.0-1.0); Bilirubin,Total 0.5 mg/dL (0.3-1.0); Blood Urea Nitrogen 21 mg/dL (8-23); Calcium 9.4 mg/dL (8.6-10.3); Carbon Dioxide 23 mEq/L (23-29); Chloride 98 mEq/L (98-107); Globulin 3.5 g/dL (2.4-3.5); Glucose 157 mg/dL (70-105); Osmolality,Calculated 288 (280-300); Potassium 3.5 mEq/L (3.5-5.1); Sodium 136 mEq/L (136-145); Total Protein 7.4 g/dL (6.4-8.9); Troponin I < 0.03 ng/mL (< 0.04); eGFR For African Americans > 60 (> 60); eGFR For Non-African Americans 58 (> 60)
[2020-04-19 14:32] LABS: Adenovirus Not Detected (Not Detect); Coronavirus 229E Not Detected (Not Detect); Coronavirus HKU1 Not Detected (Not Detect); Coronavirus NL63 Not Detected (Not Detect); Coronavirus OC43 Not Detected (Not Detect); Human Metapneumovirus Not Detected (Not Detect); Human Rhinovirus/Enterovirus Not Detected (Not Detect)
[2020-04-19 14:33] LABS: Bordetella Pertussis Not Detected (Not Detect); Chlamydophila pneumoniae Not Detected (Not Detect); Influenza A Subtype 2009 H1 Not Detected (Not Detect); Influenza B Not Detected (Not Detect); Mycoplasma pneumoniae Not Detected (Not Detect); Parainfluenza Virus 1 Not Detected (Not Detect); Parainfluenza Virus 2 Not Detected (Not Detect); Parainfluenza Virus 3 Not Detected (Not Detect); Parainfluenza Virus 4 Not Detected (Not Detect); Respiratory Syncytial Virus Not Detected (Not Detect)
[2020-04-19 14:37] LABS: SARS-CoV-2 DETECTED (Not Detect)
[2020-04-19] MEDS ORDERED: Acetaminophen 325 MG TABLET PO PRN (15:45)
[2020-04-19] MEDS ORDERED: Ondansetron 4 MG/2 ML VIAL IVP PRN (15:45)
[2020-04-19] MEDS ORDERED: D5% in Water 1,000 ML IVC PRN (15:53)
[2020-04-19] MEDS ORDERED: *HR* Dextrose 50 % in Water (Vial) 50 ML VIAL IVP PRN (15:53)
[2020-04-19] MEDS ORDERED: Dextrose Gel 15 GM/37.5 ML TUBE PO PRN ×2 (15:53)
[2020-04-19] MEDS: Insulin LISPRO 300 UNITS/3 ML VIAL SQ SCH (18:14)
[2020-04-19] MEDS: Cefdinir 300 MG CAPSULE PO SCH (21:14)
[2020-04-20 05:27] LABS: Hematocrit 41.1 % (35.3-44.9); Hemoglobin 13.5 g/dL (11.5-15.4); Mean Corpuscular HGB Conc 32.8 g/dL (31.6-35.5); Mean Corpuscular Hemoglobin 29.7 pg (28.0-33.3); Mean Corpuscular Volume 90.3 fL (83.0-100.0); Mean Platelet Volume 11.7 fL (9.4-12.4); Platelet Count 213 K/mcL (140-400); Red Blood Count 4.55 M/mcL (3.82-4.97); Red Cell Distribution Width 11.8 % (11.5-14.5); White Blood Count 9.5 K/mcL (4.3-11.1)
[2020-04-20] MEDS: *HR* Enoxaparin 40 MG/0.4 ML SYRINGE SQ SCH (05:33)
[2020-04-20 05:46] LABS: BUN/Creatinine Ratio 30 (6-26); Blood Urea Nitrogen 22 mg/dL (8-23); Calcium 8.8 mg/dL (8.6-10.3); Carbon Dioxide 24 mEq/L (23-29); Chloride 99 mEq/L (98-107); Glucose 200 mg/dL (70-105); Magnesium 1.7 mg/dL (1.6-2.6); Osmolality,Calculated 289 (280-300); Potassium 3.5 mEq/L (3.5-5.1); Sodium 135 mEq/L (136-145); eGFR For African Americans > 60 (> 60); eGFR For Non-African Americans > 60 (> 60)
[2020-04-20] MEDS: Benzonatate 100 MG CAPSULE PO PRN (06:16)
[2020-04-20] MEDS: lisinopriL 20 MG TABLET PO SCH (07:50)
[2020-04-20] MEDS: Cefdinir 300 MG CAPSULE PO SCH ×2 (07:50→19:43)
[2020-04-20] MEDS: Dexamethasone 4 MG/ML VIAL IVP SCH (07:50)
[2020-04-20] MEDS: amLODIPine 5 MG TABLET PO SCH (07:50)
[2020-04-20] MEDS: Insulin LISPRO 300 UNITS/3 ML VIAL SQ SCH ×3 (07:59→16:22)
[2020-04-21] MEDS: *HR* Enoxaparin 40 MG/0.4 ML SYRINGE SQ SCH (05:38)
[2020-04-21] MEDS: Benzonatate 100 MG CAPSULE PO PRN ×2 (05:38→19:51)
[2020-04-21] MEDS: Dexamethasone 4 MG/ML VIAL IVP SCH (08:03)
[2020-04-21] MEDS: Insulin LISPRO 300 UNITS/3 ML VIAL SQ SCH ×3 (08:03→17:04)
[2020-04-21] MEDS: Cefdinir 300 MG CAPSULE PO SCH ×2 (08:04→19:52)
[2020-04-21] MEDS: amLODIPine 5 MG TABLET PO SCH (08:04)
[2020-04-21] MEDS: lisinopriL 20 MG TABLET PO SCH (08:04)
[2020-04-22] MEDS: *HR* Enoxaparin 40 MG/0.4 ML SYRINGE SQ SCH (06:43)
[2020-04-22] MEDS: amLODIPine 5 MG TABLET PO SCH (08:08)
[2020-04-22] MEDS: Cefdinir 300 MG CAPSULE PO SCH (08:09)
[2020-04-22] MEDS: Dexamethasone 4 MG/ML VIAL IVP SCH (08:09)
[2020-04-22] MEDS: lisinopriL 20 MG TABLET PO SCH (08:09)
[2020-04-22] MEDS: Insulin LISPRO 300 UNITS/3 ML VIAL SQ SCH ×2 (08:10→11:00)
[2020-04-22] MEDS ORDERED: Doxycycline 100 MG CAPSULE PO SCH (09:00)
[2020-04-22 10:59] VITALS: BP 130/75
== END 2020-04-22 15:55 | DRG 871 ==
LOC: EMEROOARM 11:50 → CDU 11:50 → SUATTDRO 04-20 12:46
PROVIDERS: ADMIT Internal Medicine; ATTEND Pharmacist

== ENCOUNTER 2021-04-27 20:50 | Inpatient (IN) ==
[2021-04-27] MEDS ORDERED: Isovue-370 500 ML BOTTLE IVP ONE (21:08)
[2021-04-27 21:56] LABS: Hematocrit 37.6 % (35.3-44.9); Hemoglobin 12.6 g/dL (11.5-15.4); Mean Corpuscular HGB Conc 33.5 g/dL (31.6-35.5); Mean Corpuscular Hemoglobin 28.8 pg (28.0-33.3); Mean Corpuscular Volume 85.8 fL (83.0-100.0); Mean Platelet Volume 9.8 fL (9.4-12.4); Platelet Count 417 K/mcL (140-400); Red Blood Count 4.38 M/mcL (3.82-4.97); White Blood Count 17.8 K/mcL (4.3-11.1)
[2021-04-27 22:06] LABS: INR 1.2; Prothrombin Time 13.5 Seconds (9.4-12.1)
[2021-04-27 22:09] LABS: Activated Partial Thrombo Time 34.3 Seconds (26.0-36.0)
[2021-04-27 22:41] LABS: Alanine Aminotransferase 13 Units/L (7-52); Albumin/Globulin Ratio 1.4 (1.1-2.2); Alkaline Phosphatase 45 Units/L (34-104); Aspartate Amino Transferase 23 Units/L (13-39); BUN/Creatinine Ratio 34 (6-26); Bilirubin,Direct 0.2 mg/dL (0.0-0.2); Bilirubin,Indirect 0.5 mg/dL (0.0-1.0); Bilirubin,Total 0.7 mg/dL (0.3-1.0); Blood Urea Nitrogen 23 mg/dL (8-23); Calcium 9.2 mg/dL (8.6-10.3); Carbon Dioxide 24 mEq/L (23-29); Chloride 100 mEq/L (98-107); Ethanol < 10 mg/dL (Less than 10); Globulin 2.9 g/dL (2.4-3.5); Glucose 187 mg/dL (70-105); Osmolality,Calculated 287 (280-300); Potassium 3.6 mEq/L (3.5-5.1); Sodium 134 mEq/L (136-145); Total Protein 6.9 g/dL (6.4-8.9); Troponin I 0.03 ng/mL (< 0.04); eGFR For African Americans > 60 (> 60); eGFR For Non-African Americans > 60 (> 60)
[2021-04-28] MEDS ORDERED: Naloxone 0.4 MG/ML INJ IVP PRN (04:37)
[2021-04-28] MEDS ORDERED: Melatonin 3 MG TABLET PO PRN (04:37)
[2021-04-28] MEDS ORDERED: Ondansetron 4 MG/2 ML VIAL IVP PRN (04:37)
[2021-04-28] MEDS ORDERED: *HR* Promethazine 25 MG/ML VIAL IM PRN (04:37)
[2021-04-28] MEDS ORDERED: Aspirin Enteric Coated 325 MG Tablet PO ONE (04:46)
[2021-04-28] MEDS ORDERED: 0.9 % Sodium Chloride 500 ML IVC ONE (05:04)
[2021-04-28] MEDS ORDERED: Dextrose Gel 15 GM/37.5 ML TUBE PO PRN ×2 (05:11)
[2021-04-28] MEDS ORDERED: D5% in Water 1,000 ML IVC PRN (05:11)
[2021-04-28] MEDS ORDERED: *HR* Dextrose 50 % in Water (Syg) 50 ML SYRINGE IVP PRN (05:11)
[2021-04-28 09:26] LABS: Basophils # 0.1 K/mcL (0.0-0.2); Basophils % 0.5 %; Eosinophils # 0.1 K/mcL (0.0-0.6); Eosinophils % 0.6 %; Hematocrit 37.9 % (35.3-44.9); Hemoglobin 12.6 g/dL (11.5-15.4); Immature Granulocytes % 0.4 % (0-4); Lymphocytes # 2.6 K/mcL (0.6-4.6); Lymphocytes % 19.5 %; Mean Corpuscular HGB Conc 33.2 g/dL (31.6-35.5); Mean Corpuscular Hemoglobin 29.2 pg (28.0-33.3); Mean Corpuscular Volume 87.7 fL (83.0-100.0); Mean Platelet Volume 10.2 fL (9.4-12.4); Monocytes # 1.7 K/mcL (0.0-1.3); Monocytes % 12.4 %; Platelet Count 379 K/mcL (140-400); Red Blood Count 4.32 M/mcL (3.82-4.97); Red Cell Distribution Width 12.1 % (11.5-14.5); Segmented Neutrophils % 66.6 %; White Blood Count 13.5 K/mcL (4.3-11.1)
[2021-04-28 09:34] LABS: INR 1.2; Prothrombin Time 13.9 Seconds (9.4-12.1)
[2021-04-28 09:38] LABS: BUN/Creatinine Ratio 26 (6-26); Blood Urea Nitrogen 23 mg/dL (8-23); Calcium 9.1 mg/dL (8.6-10.3); Carbon Dioxide 26 mEq/L (23-29); Chloride 102 mEq/L (98-107); Chol/HDL Ratio 2.6 (0-4.9); Cholesterol 118 mg/dL (< 200); Creatine Kinase 768 Units/L (30-223); Glucose 138 mg/dL (70-105); HDL Cholesterol 45 mg/dL (40-59); LDL Cholesterol,Calculated 48 mg/dL (< 100); Magnesium 1.6 mg/dL (1.6-2.6); Osmolality,Calculated 292 (280-300); Potassium 3.4 mEq/L (3.5-5.1); Sodium 138 mEq/L (136-145); Triglycerides 124 mg/dL (< 150); Troponin I 0.03 ng/mL (< 0.04); eGFR For African Americans > 60 (> 60); eGFR For Non-African Americans > 60 (> 60)
[2021-04-28] MEDS: Insulin LISPRO 300 UNITS/3 ML VIAL SUBQ SCH ×3 (10:51→18:51)
[2021-04-28] MEDS: 0.9 % Sodium Chloride 1,000 ML IVC SCH ×2 (11:06→22:31)
[2021-04-28] MEDS ORDERED: *HR* Labetalol 20 MG/4 ML SYRINGE IVP PRN (11:23)
[2021-04-28] MEDS ORDERED: cefTRIAXone 1,000 MG in 0.9 % Sodium Chloride Mini Bag 100 ML IVPB SCH (18:22)
[2021-04-28] MEDS: cefTRIAXone 1,000 MG in Water for inj. (sterile) 10 ML IVP SCH (19:38)
[2021-04-29] MEDS: Insulin LISPRO 300 UNITS/3 ML VIAL SUBQ SCH ×4 (00:56→16:00)
[2021-04-29 06:21] LABS: Basophils # 0.1 K/mcL (0.0-0.2); Basophils % 0.6 %; Eosinophils # 0.1 K/mcL (0.0-0.6); Eosinophils % 0.6 %; Hematocrit 37.9 % (35.3-44.9); Hemoglobin 12.3 g/dL (11.5-15.4); Immature Granulocytes % 0.9 % (0-4); Lymphocytes # 1.7 K/mcL (0.6-4.6); Lymphocytes % 12.1 %; Mean Corpuscular HGB Conc 32.5 g/dL (31.6-35.5); Mean Corpuscular Hemoglobin 29.2 pg (28.0-33.3); Mean Platelet Volume 10.3 fL (9.4-12.4); Monocytes # 1.3 K/mcL (0.0-1.3); Monocytes % 9.4 %; Neutrophils # 10.8 K/mcL (1.6-8.9); Platelet Count 359 K/mcL (140-400); Red Blood Count 4.21 M/mcL (3.82-4.97); Red Cell Distribution Width 12.1 % (11.5-14.5); Segmented Neutrophils % 76.4 %; White Blood Count 14.2 K/mcL (4.3-11.1)
[2021-04-29 06:51] LABS: BUN/Creatinine Ratio 31 (6-26); Blood Urea Nitrogen 22 mg/dL (8-23); Calcium 8.5 mg/dL (8.6-10.3); Carbon Dioxide 19 mEq/L (23-29); Chloride 106 mEq/L (98-107); Creatine Kinase 469 Units/L (30-223); Glucose 136 mg/dL (70-105); Magnesium 1.6 mg/dL (1.6-2.6); Osmolality,Calculated 295 (280-300); Potassium 3.4 mEq/L (3.5-5.1); Sodium 140 mEq/L (136-145); eGFR For African Americans > 60 (> 60); eGFR For Non-African Americans > 60 (> 60)
[2021-04-29] MEDS: 0.9 % Sodium Chloride 1,000 ML IVC SCH ×2 (08:19→08:45)
[2021-04-29 09:28] LABS: Bilirubin,Urine Negative (Negative); Blood,Urine Trace (Negative); Clarity,Urine Clear (Clear); Color,Urine Colorless (Yellow); Glucose,Urine (UA) Normal (Normal); Ketones,Urine >150 mg/dL (Negative); Leukocyte Esterase,Urine Small (Negative); Mucus,Urine Few per lpf (None-Few); Nitrite,Urine Negative (Negative); Protein,Urine 30 mg/dL (Neg-Trace); RBC,Urine 0-3 per hpf (0-3); Specific Gravity,Urine 1.019 (1.010-1.025); Squamous Epithelial Cell,Urine Few per hpf (None-Few); Urobilinogen,Urine Normal (Normal)
[2021-04-29] MEDS: cefTRIAXone 1,000 MG in Water for inj. (sterile) 10 ML IVP SCH (19:41)
[2021-04-30] MEDS: Insulin LISPRO 300 UNITS/3 ML VIAL SUBQ SCH ×3 (01:09→11:30)
[2021-04-30] MEDS: 0.9 % Sodium Chloride 1,000 ML IVC SCH ×2 (04:11→13:44)
[2021-04-30 06:14] LABS: Basophils # 0.1 K/mcL (0.0-0.2); Basophils % 0.6 %; Eosinophils # 0.1 K/mcL (0.0-0.6); Eosinophils % 0.3 %; Hemoglobin 12.9 g/dL (11.5-15.4); Immature Granulocytes % 2.4 % (0-4); Lymphocytes # 1.5 K/mcL (0.6-4.6); Mean Corpuscular HGB Conc 33.1 g/dL (31.6-35.5); Mean Corpuscular Hemoglobin 29.4 pg (28.0-33.3); Mean Corpuscular Volume 88.8 fL (83.0-100.0); Mean Platelet Volume 10.1 fL (9.4-12.4); Monocytes # 1.5 K/mcL (0.0-1.3); Monocytes % 10.2 %; Neutrophils # 11.3 K/mcL (1.6-8.9); Platelet Count 374 K/mcL (140-400); Red Blood Count 4.39 M/mcL (3.82-4.97); Red Cell Distribution Width 11.9 % (11.5-14.5); Segmented Neutrophils % 76.5 %; White Blood Count 14.8 K/mcL (4.3-11.1)
[2021-04-30 06:34] LABS: BUN/Creatinine Ratio 27 (6-26); Blood Urea Nitrogen 19 mg/dL (8-23); Calcium 8.3 mg/dL (8.6-10.3); Carbon Dioxide 16 mEq/L (23-29); Chloride 107 mEq/L (98-107); Creatine Kinase 270 Units/L (30-223); Glucose 167 mg/dL (70-105); Magnesium 1.8 mg/dL (1.6-2.6); Osmolality,Calculated 294 (280-300); Phosphorous 2.3 mg/dL (2.7-4.5); Potassium 3.2 mEq/L (3.5-5.1); Sodium 139 mEq/L (136-145); eGFR For African Americans > 60 (> 60); eGFR For Non-African Americans > 60 (> 60)
[2021-04-30 07:01] VITALS: O2SAT 97
[2021-04-30] MEDS ORDERED: E-Z-HD (BARIUM SULF) SUSPENSION PO ONE (11:01)
[2021-04-30] MEDS ORDERED: E-Z-PAQUE (BARIUM SULF) SUSP 1 BOTTLE PO ONE (11:01)
[2021-04-30 11:44] VITALS: BP 168/74; PULSE 114; TEMP 99.2
== END 2021-04-30 16:00 | disposition hospice, home (50) | DRG 65 ==
LOC: ICNU 20:50 → EMEROOARM 20:50 → SUATTDRO 04-28 05:31 → ICNU 04-28 06:00 → 2ANU 04-28 11:33
PROVIDERS: ADMIT Internal Medicine; ATTEND Internal Medicine